=== PATIENT | female | born 1965 | race Caucasian/White ===

== ENCOUNTER 2023-10-23 18:00 | Emergency (ER) | payer BC, SELFPAY ==
[2023-10-23 18:01] VITALS: BP 158/78
--- NOTE | 2023-10-23 18:26 | ED.GENMED ---
History of Present Illness
General
Chief Complaint: Flank Pain
Source: patient
Exam Limitations: none
Time Seen by Provider: 10/23/23 18:11
History of Present Illness
History of Present Illness:
This is a 58 year old female that comes in with c/o left back and flank pain. States that she was in [place] helping her daughter put a kitchen floor down. States that she started with pain on but thought it was just back pain. States that
the pain has gotten worse and she has had the pain all day and it is not going away. Mychal that she feels like her back is on fire. States that she has had diarrhea and her stool has been black. States that she has no appetite. States that she always
has a headache but has felt a little dizzy. Denies any fever, chills, chest pain, SOB, abd pain, nausea, vomiting, urinary burning or frequency.
Past History
Past History
ED Past Medical History: Asthma, HTN and Other (Ulcerative colitis, kidney stones)
ED Past Surgical History: Cholecystectomy and Gynecological (Uterine ablation)
Patient has exhibited threatening behavior?: No
PSI?: No
Social History
Tobacco: Former smoker
Alcohol: Occasional
Personal:
Living: with family
Review of Systems
Review of Systems
All Other Systems: ROS reviewed and negative except as documented in HPI and ROS
Constitutional: Reports no symptoms; Denies fever or chills
EENT: Reports no symptoms
Respiratory: Reports no symptoms; Denies cough or trouble breathing
Cardiac: Reports no symptoms; Denies chest pain
ABD/GI: Reports diarrhea and black stools; Denies abdominal pain, nausea or vomiting
: Reports no symptoms; Denies dysuria, frequency or urgency
Musculoskeletal: Reports back pain (Left sided)
Skin: Reports no symptoms
Neurological: Reports dizzy (Slight) and headache (Always has a headache)
Psychiatric: Reports no symptoms
Phy Exam
General Physical Exam
General Presentation: mild distress
General age: appears stated age
General Skin: warm and dry
General Habitus: normal
General Mental: alert
General Hydration: appears well hydrated
ENT Exam
ENT Exam: TM's normal, pharynx normal and neck supple
Eye Exam
Eye Exam: EOMI
Cardiovascular Exam
Cardiovascular Exam: regular rate/rhythm, no edema, no murmur and normal peripheral pulses
Pulmonary Exam
Pulmonary Exam: lungs clear, no respiratory distress, no rales, chest non tender, no crackles, no rhonchi, no wheezing and no cough
Gastrointestinal Exam
Gastrointestinal Exam: normal bowel sounds, soft, no organomegaly, no pulsatile mass, non distended, cva tenderness (Slight left sided) and tender (Left sided tenderness )
Musculoskeletal Exam
Musculoskeletal Exam: full ROM and no edema
Skin Exam
Skin Exam: normal color, warm/dry, no rash and no petechia
Psychiatric Exam
Psychiatric Exam: normal mood/affect
Course
Orders/Labs/Results
Orders:
Orders
10/23/23 18:23
0.9% Sodium Chloride 1000 ml [Nss] 1,000 ml IV BOLUS
HYDROmorphone [Dilaudid] 1 mg IV NOW STA
Ondansetron Injectable [Zofran] 4 mg IV NOW STA
10/23/23 18:26
CT Abd/pel Without Iv Or Oral Urgent
Comment:
Reason For Exam: left flank and abd pain
10/23/23 18:45
Complete Blood Count/With Diff Urgent
Comprehensive Metabolic Panel Urgent
Urinalysis Reflex To Culture Urgent
Date Specimen was Collected: 10/23/23
Time Specimen was Collected: 18:43
Abnormal Lab Results
10/23/23
18:45
RBC 3.87 L 10^6/uL
(4.20-5.40)
Hct 35.7 L %
(37.0-47.0)
MCH 32.0 H pg
(27.0-31.0)
MPV 10.6 H fL
(7.4-10.4)
Chloride 109 H mmol/L
(98-107)
Creatinine 0.5 L mg/dL
(0.6-1.0)
Urine Ketones Trace A
(Negative)
10/23/23 18:45
10/23/23 18:45
Chloride slightly elevated. Urine negative for infection.
Vital Signs
Initial and Last Documented VS:
Initial Vital Signs
Temp Pulse Resp BP Pulse Ox
97.9 F 105 16 158/78 96
10/23/23 18:01 10/23/23 18:01 10/23/23 18:01 10/23/23 18:01 10/23/23 18:01
Last Documented Vital Signs
Temp Pulse Resp BP Pulse Ox
97.9 F 105 16 110/67 94
10/23/23 18:01 10/23/23 18:01 10/23/23 18:01 10/23/23 19:00 10/23/23 19:00
MDM/Problems Addressed
Differential Diagnosis Includes:
renal calculus, Ulcerative Colitis
MDM/Problems Addressed:
This is a 58 year old female that comes in with c/o left flank pain. States that she started on with back pain. States that this continued to get worse.
Will get labs, Urine and CT scan. Will give IV fluids and medicate for pain.
back into see patient. Explained that there are no renal calculus but there is a left nephrolith in the left kidney. The CT shows Degenerative changes of the spine, bilateral sacroiliac joints, hips and symphysis pubis. Grade 1 degenerative
anterolisthesis of L4 on L5. Will have patient use Tylenol arthritis as this is the max amount of Tylenol to use and Heat or ice to the back which ever makes her feel better. Follow up with the family doctor. Return with any concerns.
Chronic conditions affecting care:
Ulcerative colitis, renal caculus
Acute Exacerbation and/or Progression of Chronic Illness:
Renal calculus, Ulcerative Colitis.
*Radiology
Radiology exam reviewed: radiology read reviewed (CT- small left lower pole nephrolith. No evidence for obstructive uropathy. )
*Pulse Oximetry
Patient hypoxic: no
*EKG
Interpreted by ED Provider?: NA
Rate: EKG- N/A
*Car Pick Up Driver Interpretation
Rate: Car Pick Up Driver- N/A
*Critical Care Note
Total Time (30-74mins, 75-104mins- exclusive of procedures): Not Applicable
ED Attending Note
-
Portions of this chart may have been created with voice recognition software.� Occasional wrong word or��sound alike� substitutions may have occurred due to the inherent limitations of voice recognition software.
Discharge Plan
Departure
Patient Disposition: Home (Routine Discharge)
Date of Disposition: 10/23/23
Time of Disposition: 19:52
Patient with high blood pressure during this ER visit?: No
Condition: Good
Covid-19: Not Applicable
Discharge Problem:
Acute mid back pain
Instructions: Back Pain
Prescriptions:
No Action
esomeprazole magnesium [Nexium] 40 MG capsule,delayed release(DR/EC)
40 mg PO DAILY
balsalazide [Colazal] 750 MG capsule
2,250 mg PO BID
cyclobenzaprine [Flexeril] 10 mg Tablet
10 mg PO TID PRN (Reason: muscle pains)
sucralfate [Carafate] 1 gram Tablet
1 g PO ACHS
Theragen Tablet
1 tab PO DAILY
ascorbic acid (vitamin C) [Vitamin C] 500 mg Tablet
500 mg PO DAILY
docusate sodium [Colace] 100 mg Capsule
100 mg PO HS
zinc 50 mg Tablet
50 mg PO DAILY
Excedrin Migraine 250-250-65 mg Tablet
1 tab PO BIDPRN PRN (Reason: mild pains)
olmesartan [Benicar] 5 mg Tablet
5 mg PO BID
cholecalciferol (vitamin D3) [Vitamin D3] 25 mcg (1,000 unit) Tablet
25 mcg PO DAILY
Motegrity 2 mg tablet
2 mg PO DAILY
ondansetron 4 mg tablet,disintegrating
4 mg PO Q8H PRN (Reason: nausea and vomiting) Qty: 10 0RF
Referrals:
UNKNOWN - PT DOES,NOT KNOW [Family Provider] -
Stand Alone Forms: Return to Work
Activity Restrictions/Additional Instructions:
As discussed, your blood work is normal and your urine is negative for any infection. Your CT shows that there is a stone in the left kidney but this will not cause pain unless it starts to move. There is degenerative changes in the back, Hips and
pelvis. Please use Tylenol arthritis to pain, heat or ice which ever makes you feel better. Follow up with the family doctor for further evaluation. IF YOU HAVE ANY OTHER CONCERNS PLEASE RETURN TO THE EMERGENCY ROOM.
Interventions
Interventions:
ED-Female Genitourinary Assessment Last Done: 10/23/23 19:32
Discharge Date and Time
Print Language: HUNGARIAN
[2023-10-23] MEDS: DILAUDID 1 MG IV (18:38)
[2023-10-23] MEDS: ZOFRAN 4 MG IV (18:39)
[2023-10-23] MEDS: NSS 1000 IV (18:44)
[2023-10-23 18:48] VITALS: BP 125/60
[2023-10-23 18:56] LABS: % Basophils 0.3 % (0-2); % Eosinophils 0.3 % (0-6); % Immature Granulocytes 0.2 % (0-0.5); % Lymphocytes 38.7 % (20.5-51.1); % Monocytes 6.4 % (1.7-9.3); % Neutrophils 54.1 % (42.2-75.2); Absolute Lymphocytes 2.4 10^3/uL (1.2-3.4); Absolute Monocytes 0.4 10^3/uL (0.1-0.6); Absolute Neutrophils 3.4 10^3/uL (1.4-6.5); Hematocrit 35.7 % (37.0-47.0); Hemoglobin 12.4 g/dL (12.0-16.0); Mean Corp Hgb Conc. 34.7 g/dL (33.0-37.0); Mean Corpuscular Volume 92.2 fL (81.0-99.0); Mean Platelet Volume 10.6 fL (7.4-10.4); Nucleated Red Blood Cells % 0 %; Platelet Count 167 10^3/uL (130-400); Red Blood Cell Count 3.87 10^6/uL (4.20-5.40); Red Cell Dist. Width 12.1 % (11.5-14.5); Urine Albumin Negative (Neg - Trace); Urine Bilirubin Negative (Negative); Urine Character Clear (Clear); Urine Color Yellow; Urine Glucose Negative (Negative); Urine Ketone Trace (Negative); Urine Leukocyte Negative (Negative); Urine Nitrite Negative (Negative); Urine Occult Blood Negative (Negative); Urine Specific Gravity 1.015 (<1.030); Urine Urobilinogen Negative (Neg - 1+); White Blood Cell Count 6.3 10^3/uL (4.8-10.8)
[2023-10-23 19:00] VITALS: BP 110/67
[2023-10-23 19:15] LABS: ALT (SGPT) 16 U/L (0-35); AST (SGOT) 24 U/L (14-36); Albumin 4.3 g/dl (3.5-5.0); Alkaline Phosphatase 78 U/L (38-126); Blood Urea Nitrogen 17 mg/dl (7-17); Calcium 9.7 mg/dl (8.4-10.2); Carbon Dioxide 24 mmol/L (22-30); Chloride 109 mmol/L (98-107); Glucose 93 mg/dl (70-99); Potassium 3.6 mmol/L (3.5-5.1); Sodium 143 mmol/L (135-145); Total Bilirubin 0.5 mg/dl (0.2-1.3); Total Protein 6.8 g/dl (6.3-8.2); eGFR > 60.00
[2023-10-23 20:08] VITALS: BP 128/70
== END 2023-10-23 20:26 | disposition home or self-care (01) ==
LOC: EMR 18:00
PROVIDERS: Clinical Nurse Specialist Family Health; EMERGENCY PHYSICIAN Emergency Medicine
DX: M54.6 Pain in thoracic spine (principal); Z87.891 Personal history of nicotine dependence
CPT/HCPCS: 99284; 96374; 96375; 96361; 74176; 80053; 81003; 85025

== ENCOUNTER 2023-10-25 03:59 | Emergency (ER) | payer BC, SELFPAY ==
[2023-10-25] VITALS (9 sets, daily range): BP systolic 118–145; BP diastolic 63–100; BMI 25.5
[2023-10-25] MEDS: ZOFRAN 4 MG IV ×2 (05:36→09:32)
[2023-10-25] MEDS: MORPHINE SULFATE 4 MG IV (05:37)
[2023-10-25 05:59] LABS: % Basophils 0.2 % (0-2); % Eosinophils 0.3 % (0-6); % Immature Granulocytes 0.3 % (0-0.5); % Monocytes 5.4 % (1.7-9.3); % Neutrophils 69.8 % (42.2-75.2); Absolute Lymphocytes 1.4 10^3/uL (1.2-3.4); Absolute Monocytes 0.3 10^3/uL (0.1-0.6); Hematocrit 39.6 % (37.0-47.0); Hemoglobin 13.4 g/dL (12.0-16.0); Mean Corp Hgb Conc. 33.8 g/dL (33.0-37.0); Mean Corpuscular Hgb 33.2 pg (27.0-31.0); Mean Platelet Volume 11.5 fL (7.4-10.4); Nucleated Red Blood Cells % 0 %; Platelet Count 170 10^3/uL (130-400); Red Blood Cell Count 4.04 10^6/uL (4.20-5.40); White Blood Cell Count 5.7 10^3/uL (4.8-10.8)
[2023-10-25 06:16] LABS: ALT (SGPT) 17 U/L (0-35); AST (SGOT) 25 U/L (14-36); Albumin 4.4 g/dl (3.5-5.0); Alkaline Phosphatase 76 U/L (38-126); Blood Urea Nitrogen 16 mg/dl (7-17); Calcium 9.6 mg/dl (8.4-10.2); Carbon Dioxide 28 mmol/L (22-30); Chloride 108 mmol/L (98-107); Glucose 93 mg/dl (70-99); Potassium 3.9 mmol/L (3.5-5.1); Sodium 143 mmol/L (135-145); Total Bilirubin 0.8 mg/dl (0.2-1.3); Total Protein 6.8 g/dl (6.3-8.2); eGFR > 60.00
--- NOTE | 2023-10-25 07:39 | ED.GENMED ---
History of Present Illness
<Reese Metzger MD, Resident - Last Filed: 10/25/23 12:49>
General
Chief Complaint: Back Pain
Time Seen by Provider: 10/25/23 07:28
History of Present Illness
History of Present Illness:
58-year-old female presented to the ED with left flank pain radiating to her back. She was in the ED 2 days ago and was diagnosed with nephrolithiasis with nonobstructive uropathy. Patient states that after going back home and after wearing off of
the pain medications her pain reoccurred. She experiences sharp shooting pain in her left flank which radiates to her lower back. It also radiates to upper back on left side. She has a history of ulcerative colitis. Patient also states that she
has been constipated for over 5 days now. She does take MiraLAX daily however experiences constipation with history of UC. Last bowel movement was 5 days ago, the stool color was black.
Past History
<Reese Metzger MD, Resident - Last Filed: 10/25/23 12:49>
Past History
ED Past Medical History: Asthma, HTN and Other (Ulcerative colitis, kidney stones)
ED Past Surgical History: Cholecystectomy and Gynecological (Uterine ablation)
Patient has exhibited threatening behavior?: No
PSI?: No
Social History
Tobacco: Former smoker
Alcohol: Occasional
Personal:
Living: with family
Review of Systems
<Reese Metzger MD, Resident - Last Filed: 10/25/23 12:49>
Review of Systems
: Reports flank pain (Left radiating to her back on the left side)
Phy Exam
<Reese Metzger MD, Resident - Last Filed: 10/25/23 12:49>
General Physical Exam
General Presentation: mild distress
Cardiovascular Exam
Cardiovascular Exam: regular rate/rhythm
Pulmonary Exam
Pulmonary Exam: lungs clear
Gastrointestinal Exam
Gastrointestinal Exam: normal bowel sounds, soft and tender (Flank tenderness )
Course
<Reese Metzger MD, Resident - Last Filed: 10/25/23 12:49>
Orders/Labs/Results
Orders:
Orders
10/25/23 05:30
Morphine Sulfate 4 mg .ROUTE .STK-MED ONE
Ondansetron Injectable [Zofran] 4 mg .ROUTE .STK-MED ONE
10/25/23 05:32
Ondansetron Injectable [Zofran] 4 mg IV NOW STA
10/25/23 05:37
CMP [Comprehensive Metabolic Panel] Urgent
Complete Blood Count/With Diff Urgent
Morphine Sulfate 4 mg IV NOW STA
10/25/23 07:44
Urinalysis Reflex To Culture Urgent
Date Specimen was Collected: 10/25/23
Time Specimen was Collected: 07:43
10/25/23 07:47
Ketorolac [Toradol] 30 mg IV NOW STA
10/25/23 07:50
0.9% Sodium Chloride 250 ml [Nss] 250 ml IV BOLUS
10/25/23 09:25
HYDROmorphone [Dilaudid] 1 mg IV NOW STA
Ondansetron Injectable [Zofran] 4 mg IV NOW STA
10/25/23 09:26
US Renal With Bladder Urgent
Comment: bladder not full ok, looking at ureteral jets
Reason For Exam: left flakn pain
Abnormal Lab Results
10/25/23
05:37
RBC 4.04 L 10^6/uL
(4.20-5.40)
MCH 33.2 H pg
(27.0-31.0)
MPV 11.5 H fL
(7.4-10.4)
Chloride 108 H mmol/L
(98-107)
10/25/23 05:37
10/25/23 05:37
Vital Signs
Initial and Last Documented VS:
Initial Vital Signs
Temp Pulse Resp BP Pulse Ox
98.2 F 110 24 142/100 98
10/25/23 04:00 10/25/23 04:00 10/25/23 04:00 10/25/23 04:00 10/25/23 04:00
Last Documented Vital Signs
Temp Pulse Resp BP Pulse Ox
98.2 F 110 24 130/64 97
10/25/23 04:00 10/25/23 04:00 10/25/23 04:00 10/25/23 12:00 10/25/23 12:00
<Bonifacio Shields, DO - Last Filed: 10/25/23 07:59>
Orders/Labs/Results
Orders:
Orders
10/25/23 05:30
Morphine Sulfate 4 mg .ROUTE .STK-MED ONE
Ondansetron Injectable [Zofran] 4 mg .ROUTE .STK-MED ONE
10/25/23 05:32
Ondansetron Injectable [Zofran] 4 mg IV NOW STA
10/25/23 05:37
CMP [Comprehensive Metabolic Panel] Urgent
Complete Blood Count/With Diff Urgent
Morphine Sulfate 4 mg IV NOW STA
10/25/23 07:44
Urinalysis Reflex To Culture Urgent
Date Specimen was Collected: 10/25/23
Time Specimen was Collected: 07:43
10/25/23 07:47
Ketorolac [Toradol] 30 mg IV NOW STA
10/25/23 07:50
0.9% Sodium Chloride 250 ml [Nss] 250 ml IV BOLUS
10/25/23 09:25
HYDROmorphone [Dilaudid] 1 mg IV NOW STA
Ondansetron Injectable [Zofran] 4 mg IV NOW STA
10/25/23 09:26
US Renal With Bladder Urgent
Comment: bladder not full ok, looking at ureteral jets
Reason For Exam: left flakn pain
Abnormal Lab Results
10/25/23
05:37
RBC 4.04 L 10^6/uL
(4.20-5.40)
MCH 33.2 H pg
(27.0-31.0)
MPV 11.5 H fL
(7.4-10.4)
Chloride 108 H mmol/L
(98-107)
10/25/23 05:37
10/25/23 05:37
Vital Signs
Initial and Last Documented VS:
Initial Vital Signs
Temp Pulse Resp BP Pulse Ox
98.2 F 110 24 142/100 98
10/25/23 04:00 10/25/23 04:00 10/25/23 04:00 10/25/23 04:00 10/25/23 04:00
Last Documented Vital Signs
Temp Pulse Resp BP Pulse Ox
98.2 F 110 24 130/64 97
10/25/23 04:00 10/25/23 04:00 10/25/23 04:00 10/25/23 12:00 10/25/23 12:00
<Reese Metzger MD, Resident - Last Filed: 10/25/23 12:49>
*Critical Care Note
Total Time (30-74mins, 75-104mins- exclusive of procedures): Not Applicable
<Reese Metzger MD, Resident - Last Filed: 10/25/23 12:49>
Update Note
Update Note:
58-year-old female presented with left flank pain radiating to her back.
Patient was seen in the ED 2 days ago and was diagnosed with nephrolithiasis-. The recurrence of pain that she has been having could be due to passing of stone from kidneys to ureters. Patient is hemodynamically stable. IV Toradol 30 mg given
for pain. CT of the abdomen/pelvis was 10/22 which showed nephrolithiasis with nonobstructive uropathy. Patient continues to have pain. IV Dilauded with IV Zofran as patient feels nauseous with opioids. US of kidneys and bladder.
IMPRESSION:
No evidence for pelvicalyceal dilation of either kidney.
Small nephrolith in the lower pole the left kidney, unchanged from recent CT examination. Simple cyst within the lower pole the left kidney, also stable.
Patient's ultrasound remains unchanged from previous CT of the abdomen on 10/22. Patient is hemodynamically stable and is okay to be discharged. Will give a trial of Flomax, Toradol, Percocet for pain management. Advised the patient to to hydrate
which will help with passage of stone.
ED Attending Note
<Reese Metzger MD, Resident - Last Filed: 10/25/23 12:49>
-
Portions of this chart may have been created with voice recognition software.� Occasional wrong word or��sound alike� substitutions may have occurred due to the inherent limitations of voice recognition software.
<Bonifacio Shields DO - Last Filed: 10/25/23 07:59>
ED Attending Note
Patient seen and examined by attending physician: Yes
I performed the substantive portion of visit, reviewed & personally made and approve the management plan that is documented in note by myself or KARL.: Yes
I performed a history and physical exam of patient and discussed management with resident, I reviewed resident's note and agree with documented findings and plan of care.: Yes
ED Attending Note:
Seen with resident examined independently return visit for left flank pain history of renal stones, ulcerative colitis
No fevers, CT from a few days ago noted, allergies noted reviewed extensively with patient she does not typically use NSAIDs states 30 years ago her legs were numb after that mother previously had used a lot of Naprosyn does not prefer narcotics as
well will try a dose of Toradol here, unclear if she has got a true allergy or not, she is hesitant to use any narcotics, hold on further imaging suspect this could be a stone which is migrated, versus muscular,
Discharge Plan
Departure
Patient Disposition: Home (Routine Discharge)
Date of Disposition: 10/25/23
Time of Disposition: 12:03
Patient with high blood pressure during this ER visit?: No
Condition: Good
Discharge Problem:
Left nephrolithiasis
Instructions: Kidney Stone, Adult ED
Prescriptions:
New
tamsulosin [Flomax] 0.4 mg capsule
0.4 mg PO DAILY 5 Days Qty: 5 0RF
Rx Instructions:
To be taken at night due to orthostatic hypotension
naproxen 500 mg tablet
500 mg PO BID PRN (Reason: Pain) 7 Days Qty: 14 0RF
hydrocodone-acetaminophen 5-300 mg tablet
1 tab PO Q8H PRN (Reason: Pain) Qty: 10 0RF
No Action
esomeprazole magnesium [Nexium] 40 MG capsule,delayed release(DR/EC)
40 mg PO DAILY
balsalazide [Colazal] 750 MG capsule
2,250 mg PO BID
cyclobenzaprine [Flexeril] 10 mg Tablet
10 mg PO TID PRN (Reason: muscle pains)
sucralfate [Carafate] 1 gram Tablet
1 g PO ACHS
Theragen Tablet
1 tab PO DAILY
ascorbic acid (vitamin C) [Vitamin C] 500 mg Tablet
500 mg PO DAILY
docusate sodium [Colace] 100 mg Capsule
100 mg PO HS
zinc 50 mg Tablet
50 mg PO DAILY
Excedrin Migraine 250-250-65 mg Tablet
1 tab PO BIDPRN PRN (Reason: mild pains)
olmesartan [Benicar] 5 mg Tablet
5 mg PO BID
cholecalciferol (vitamin D3) [Vitamin D3] 25 mcg (1,000 unit) Tablet
25 mcg PO DAILY
Motegrity 2 mg tablet
2 mg PO DAILY
ondansetron 4 mg tablet,disintegrating
4 mg PO Q8H PRN (Reason: nausea and vomiting) Qty: 10 0RF
Referrals:
UNKNOWN - PT DOES,NOT KNOW [Family Provider] -
Interventions
Interventions:
*Risk Screen - Suicide Last Done: 10/25/23 04:00
*General Assessment Last Done: 10/25/23 06:43
*Neglect/Abuse Screening Last Done: 10/25/23 04:00
ED- Fall Risk Assessment Last Done: 10/25/23 06:56
*ED COVID-19 Vaccine History Last Done: 10/25/23 06:43
ED-Musculoskeletal Assessment Last Done: 10/25/23 05:16
Discharge Date and Time
Print Language: TURKISH
[2023-10-25] MEDS: TORADOL 30 MG IV (07:54)
[2023-10-25] MEDS: NSS 250 IV (07:55)
[2023-10-25 07:56] LABS: Urine Albumin Negative (Neg - Trace); Urine Bilirubin Negative (Negative); Urine Character Clear (Clear); Urine Color Yellow; Urine Glucose Negative (Negative); Urine Ketone Negative (Negative); Urine Leukocyte Negative (Negative); Urine Nitrite Negative (Negative); Urine Occult Blood Negative (Negative); Urine Specific Gravity 1.025 (<1.030); Urine Urobilinogen Negative (Neg - 1+)
[2023-10-25] MEDS: DILAUDID 1 MG IV (09:28)
== END 2023-10-25 13:19 | disposition home or self-care (01) ==
LOC: EMR 03:59
PROVIDERS: Student in an Organized Health Care Education/Training Program; EMERGENCY PHYSICIAN Emergency Medicine
DX: N20.0 Calculus of kidney (principal); K59.00 Constipation, unspecified; R10.9 Unspecified abdominal pain; M54.9 Dorsalgia, unspecified; I10 Essential (primary) hypertension; K51.90 Ulcerative colitis, unspecified, without complications; J45.909 Unspecified asthma, uncomplicated; Z90.49 Acquired absence of other specified parts of digestive tract; Z87.442 Personal history of urinary calculi; Z87.891 Personal history of nicotine dependence; Z88.5 Allergy status to narcotic agent
CPT/HCPCS: 99284; 96374; 96375 ×3; 96361; 96376; 76770; 80053; 81003; 85025

== ENCOUNTER 2023-10-30 08:15 | Emergency (ER) | payer BC, OTHER, SELFPAY ==
[2023-10-30 08:19] VITALS: BP 145/90
[2023-10-30 09:11] VITALS: BMI 23.8
[2023-10-30 09:13] VITALS: BP 153/78
[2023-10-30 09:15] VITALS: BP 153/78
[2023-10-30 09:32] LABS: Urine Albumin Negative (Neg - Trace); Urine Bilirubin Negative (Negative); Urine Character Clear (Clear); Urine Color Straw; Urine Glucose Negative (Negative); Urine Ketone Negative (Negative); Urine Leukocyte Negative (Negative); Urine Nitrite Negative (Negative); Urine Occult Blood Negative (Negative); Urine Specific Gravity 1.015 (<1.030); Urine Urobilinogen Negative (Neg - 1+)
[2023-10-30 09:35] LABS: % Basophils 0.2 % (0-2); % Eosinophils 0.4 % (0-6); % Immature Granulocytes 0.2 % (0-0.5); % Lymphocytes 31.2 % (20.5-51.1); % Monocytes 6.4 % (1.7-9.3); % Neutrophils 61.6 % (42.2-75.2); Absolute Lymphocytes 1.6 10^3/uL (1.2-3.4); Absolute Monocytes 0.3 10^3/uL (0.1-0.6); Absolute Neutrophils 3.1 10^3/uL (1.4-6.5); Hematocrit 36.8 % (37.0-47.0); Hemoglobin 12.7 g/dL (12.0-16.0); Mean Corp Hgb Conc. 34.5 g/dL (33.0-37.0); Mean Corpuscular Hgb 32.2 pg (27.0-31.0); Mean Corpuscular Volume 93.2 fL (81.0-99.0); Mean Platelet Volume 10.6 fL (7.4-10.4); Nucleated Red Blood Cells % 0 %; Platelet Count 160 10^3/uL (130-400); Red Blood Cell Count 3.95 10^6/uL (4.20-5.40)
--- NOTE | 2023-10-30 09:36 | ED.GENMED ---
History of Present Illness
<Clay Cohen PA-C - Last Filed: 10/30/23 13:02>
General
Chief Complaint: Flank Pain
Source: patient and records
Time Seen by Provider: 10/30/23 09:01
History of Present Illness
History of Present Illness:
58-year-old female with past medical history of hypertension and ulcerative colitis, seen here twice in the last week and diagnosed with a nonobstructive left renal pole kidney stone measuring 3 mm, presenting back to the emergency department still
reporting continued left-sided mid back pain described to be constant, goes towards the scapular region but also into the lower back, unrelieved with naproxen as well as Percocet that she has been taking at home. Patient made an appointment with
urology but is unable to be seen until Tuesday. She endorses associated nausea and constipation. She denies any fevers, chills, rigors, urinary frequency/urgency/dysuria/hematuria, chest pain, shortness of breath, pleurisy, hemoptysis or any other
concerns. Denies any history of similar. States this feels very different than the ulcerative colitis flare. No other concerns presently
Past History
<Clay Cohen PA-C - Last Filed: 10/30/23 13:02>
Past History
ED Past Medical History: Asthma, HTN and Other (Ulcerative colitis, kidney stones)
ED Past Surgical History: Cholecystectomy and Gynecological (Uterine ablation)
Patient has exhibited threatening behavior?: No
PSI?: No
Social History
Tobacco: Former smoker
Alcohol: Occasional
Drug: None
Personal:
Living: with family
Review of Systems
<JOSE Gabriel Last Filed: 10/30/23 13:02>
Review of Systems
All Other Systems: ROS reviewed and negative except as documented in HPI and ROS
Phy Exam
<Clay Cohen PA-C - Last Filed: 10/30/23 13:02>
Physical Exam
Physical Exam:
GENERAL: Alert , in no apparent distress but does appear uncomfortable
Head: Normocephalic atraumatic
EYE: Clear conjunctiva
NECK: Supple
ENT: o/p clr, mmm.
CARDIAC: Regular rate and rhythm, no murmur.
LUNGS: Clear breath sounds bilaterally, no acute respiratory distress, no wheezes/rales/rhonchi
ABDOMEN: Soft, nondistended, diffuse generalized tenderness, no r/g, no cvat
Back: Patient has some reproducible tenderness to the left mid back just inferior to the scapula and extends down into the paralumbar region
NEUROLOGICAL: Alert and oriented
SKIN: Warm and dry, skin intact.
MUSCULOSKELETAL: No edema, well perfused.
PSYCH: Normal and appropriate interaction.
Scores
<Clay Cohen PA-C - Last Filed: 10/30/23 13:02>
Heart Failure Risk
Heart Failure Risk Score: Not Applicable
Heart Score for Chest Pain Patients
STEMI patient?: Not applicable
Withdrawal Assessment of Alcohol
Withdrawal Assessment Completed?: Not applicable
Course
<Clay Cohen PA-C - Last Filed: 10/30/23 13:02>
Orders/Labs/Results
Orders:
Orders
10/30/23 09:12
Ketorolac [Toradol] 30 mg IV NOW STA
Ondansetron Injectable [Zofran] 4 mg IV NOW STA
10/30/23 09:20
Complete Blood Count/With Diff Urgent
Comprehensive Metabolic Panel Urgent
D-Dimer Urgent
Lipase Urgent
Troponin I Urgent
Urinalysis Reflex To Culture Urgent
Date Specimen was Collected: 10/30/23
Time Specimen was Collected: 09:16
10/30/23 09:34
Dexamethasone Sod Phosphate [Decadron] 10 mg IV NOW STA
Diazepam [Valium] 5 mg PO NOW STA
Lidocaine [Lidocaine 4% Patch] 1 patch TOPICAL NOW STA
Apply Lidocaine patch(s) to:: right mid back
10/30/23 09:51
Electrocardiogram (*1) Urgent
Reason for Study: Other
Other Reason for Exam: back pain
EKG- Treatment ONCE
Abnormal Lab Results
10/30/23
09:20
RBC 3.95 L 10^6/uL
(4.20-5.40)
Hct 36.8 L %
(37.0-47.0)
MCH 32.2 H pg
(27.0-31.0)
MPV 10.6 H fL
(7.4-10.4)
Carbon Dioxide 32 H mmol/L
(22-30)
10/30/23 09:20
10/30/23 09:20
Vital Signs
Initial and Last Documented VS:
Initial Vital Signs
Temp Pulse BP Pulse Ox
98.2 F 87 145/90 99
10/30/23 08:19 10/30/23 08:19 10/30/23 08:19 10/30/23 08:19
Last Documented Vital Signs
Temp Pulse Resp BP Pulse Ox
97.9 F 91 20 138/70 99
10/30/23 12:00 10/30/23 12:15 10/30/23 12:15 10/30/23 11:00 10/30/23 12:15
<Cj Harrison, DO - Last Filed: 10/30/23 12:13>
Orders/Labs/Results
Orders:
Orders
10/30/23 09:12
Ketorolac [Toradol] 30 mg IV NOW STA
Ondansetron Injectable [Zofran] 4 mg IV NOW STA
10/30/23 09:20
Complete Blood Count/With Diff Urgent
Comprehensive Metabolic Panel Urgent
D-Dimer Urgent
Lipase Urgent
Troponin I Urgent
Urinalysis Reflex To Culture Urgent
Date Specimen was Collected: 10/30/23
Time Specimen was Collected: 09:16
10/30/23 09:34
Dexamethasone Sod Phosphate [Decadron] 10 mg IV NOW STA
Diazepam [Valium] 5 mg PO NOW STA
Lidocaine [Lidocaine 4% Patch] 1 patch TOPICAL NOW STA
Apply Lidocaine patch(s) to:: right mid back
10/30/23 09:51
Electrocardiogram (*1) Urgent
Reason for Study: Other
Other Reason for Exam: back pain
EKG- Treatment ONCE
Abnormal Lab Results
10/30/23
09:20
RBC 3.95 L 10^6/uL
(4.20-5.40)
Hct 36.8 L %
(37.0-47.0)
MCH 32.2 H pg
(27.0-31.0)
MPV 10.6 H fL
(7.4-10.4)
Carbon Dioxide 32 H mmol/L
(22-30)
10/30/23 09:20
10/30/23 09:20
Vital Signs
Initial and Last Documented VS:
Initial Vital Signs
Temp Pulse BP Pulse Ox
98.2 F 87 145/90 99
10/30/23 08:19 10/30/23 08:19 10/30/23 08:19 10/30/23 08:19
Last Documented Vital Signs
Temp Pulse Resp BP Pulse Ox
97.9 F 91 20 138/70 99
10/30/23 12:00 10/30/23 12:15 10/30/23 12:15 10/30/23 11:00 10/30/23 12:15
<Clay Cohen PA-C - Last Filed: 10/30/23 13:02>
MDM/Problems Addressed
Differential Diagnosis Includes:
Has a known 3 mm none of left kidney stone however I do not suspect this to be the cause of the pain as this is within the lower pole of the kidney and nonobstructive. I also do not have concern for acute pyelonephritis as patient has had 2
negative urines with negative cultures.
Musculoskeletal etiology, PE, possible bowel pathology
MDM/Problems Addressed:
58-year-old male presenting back to this emergency department for the third time in 1 week for left-sided back/flank pain. Patient was told about a 3 mm nonobstructive kidney stone on the lower pole of the left kidney and made an appointment with
urology but is unable to be seen until this coming Tuesday. Based off of history combined with her exam today as well as her imaging studies I am less suspicious that the pain is being caused by the nonobstructive kidney stone. It was noted on
patient's first visit that she had been laying down yomi prior to the pain starting so I am most suspicious for a musculoskeletal etiology. In the meantime we will also add on different labs including a D-dimer, lipase and will obtain imaging
based off of D-dimer result. It was also noted on patient's CT report that she has chronic mild degenerative changes of the spine, bilateral sacroiliac joints, hips and symphysis pubis as well as grade 1 degenerative anterolisthesis of L4 on L5
furthering my suspicion that this is likely muscular. Patient's pain to be treated with Toradol, Valium for muscle relaxant, Decadron and topical Lidoderm. Explained to patient that I would like to avoid opiates as she is already known
constipation over the few days which I think is related to the Dilaudid and that she has received over the last week.
<Clay Cohen PA-C - Last Filed: 10/30/23 13:02>
*Pulse Oximetry
Patient hypoxic: no
*EKG
Interpreted by ED Provider?: Yes
Comparison EKG: no changes
Heart Rate: 70
Rate: normal
Rhythm: sinus
Gilmer: normal axis
Ischemia: no ischemia
*Critical Care Note
Total Time (30-74mins, 75-104mins- exclusive of procedures): Not Applicable
Data Reviewed
Review of Other/Old Records Reveals: Labs, Records and Radiology Studies
Source: patient and records
<Clay Cohen PA-C - Last Filed: 10/30/23 13:02>
Patient Management
Escalation/DeEscalation of care consider admission/obs:
Patient is still noting some pain albeit improved following medications here. Patient's lab findings are all reassuring. Negative troponin as well as D-dimer. Nonischemic EKG. I discussed with patient that I am still most suspicious that her
symptoms are all related to a muscular etiology. Will treat at home with muscle relaxant, steroid taper and provided with information for pain management. Patient aware of return precautions to the emergency department and is otherwise stable for
discharge home.
ED Attending Note
<Clay Cohen PA-C - Last Filed: 10/30/23 13:02>
-
Portions of this chart may have been created with voice recognition software.� Occasional wrong word or��sound alike� substitutions may have occurred due to the inherent limitations of voice recognition software.
<Cj Harrison DO - Last Filed: 10/30/23 12:13>
ED Attending Note
Patient seen and examined by attending physician: Yes
I performed the substantive portion of visit, reviewed & personally made and approve the management plan that is documented in note by myself or KARL.: Yes
Discharge Plan
Departure
Patient Disposition: Home (Routine Discharge)
Date of Disposition: 10/30/23
Time of Disposition: 12:13
Patient with high blood pressure during this ER visit?: Yes
Discharge Problem:
Dorsalgia
Instructions: Back Pain
Prescriptions:
New
cyclobenzaprine 5 mg tablet
5 mg PO BID PRN (Reason: muscle spasm) Qty: 6 0RF
oxycodone-acetaminophen [Percocet] 5-325 mg tablet
1 tab PO Q6HPRN PRN (Reason: pain) Qty: 6 0RF
methylprednisolone [Medrol (Kevin)] 4 mg tablets,dose pack
4 mg PO DIRECTED Qty: 21 0RF
No Action
esomeprazole magnesium [Nexium] 40 MG capsule,delayed release(DR/EC)
40 mg PO DAILY
balsalazide [Colazal] 750 MG capsule
2,250 mg PO BID
cyclobenzaprine [Flexeril] 10 mg Tablet
10 mg PO TID PRN (Reason: muscle pains)
sucralfate [Carafate] 1 gram Tablet
1 g PO ACHS
Theragen Tablet
1 tab PO DAILY
ascorbic acid (vitamin C) [Vitamin C] 500 mg Tablet
500 mg PO DAILY
docusate sodium [Colace] 100 mg Capsule
100 mg PO HS
zinc 50 mg Tablet
50 mg PO DAILY
Excedrin Migraine 250-250-65 mg Tablet
1 tab PO BIDPRN PRN (Reason: mild pains)
olmesartan [Benicar] 5 mg Tablet
5 mg PO BID
cholecalciferol (vitamin D3) [Vitamin D3] 25 mcg (1,000 unit) Tablet
25 mcg PO DAILY
Motegrity 2 mg tablet
2 mg PO DAILY
ondansetron 4 mg tablet,disintegrating
4 mg PO Q8H PRN (Reason: nausea and vomiting) Qty: 10 0RF
tamsulosin [Flomax] 0.4 mg capsule
0.4 mg PO DAILY 5 Days Qty: 5 0RF
Rx Instructions:
To be taken at night due to orthostatic hypotension
naproxen 500 mg tablet
500 mg PO BID PRN (Reason: Pain) 7 Days Qty: 14 0RF
oxycodone-acetaminophen [Percocet] 5-325 mg tablet
1 tab PO Q8H PRN (Reason: Pain) Qty: 10 0RF
Referrals:
Prasad Kimbrough MD [Active] - (Pain Management)
Shirley Bradley DO [Family Provider] -
Interventions
Interventions:
*Risk Screen - Suicide Last Done: 10/30/23 10:15
*General Assessment Last Done: 10/30/23 09:11
*Neglect/Abuse Screening Last Done: 10/30/23 10:15
ED- Fall Risk Assessment Last Done: 10/30/23 09:11
*ED COVID-19 Vaccine History Last Done: 10/30/23 09:14
*Nursing Disposition Last Done: 10/30/23 12:54
HA-Ejwpoh-Vzthkiyfsl Assessment Last Done: 10/30/23 09:11
ED-Female Genitourinary Assessment Last Done: 10/30/23 09:11
Discharge Date and Time
Print Language: MALAWIAN
[2023-10-30] MEDS: ZOFRAN 4 MG IV (09:41)
[2023-10-30] MEDS: TORADOL 30 MG IV (09:42)
[2023-10-30] MEDS: DECADRON 10 MG IV (09:42)
[2023-10-30] MEDS: LIDOCAINE 4% PATCH 1 PATCH TOPICAL (09:43)
[2023-10-30] MEDS: VALIUM 5 MG PO (09:43)
[2023-10-30 09:46] LABS: ALT (SGPT) 15 U/L (0-35); AST (SGOT) 21 U/L (14-36); Albumin 4.2 g/dl (3.5-5.0); Alkaline Phosphatase 74 U/L (38-126); Blood Urea Nitrogen 13 mg/dl (7-17); Calcium 9.8 mg/dl (8.4-10.2); Carbon Dioxide 32 mmol/L (22-30); Chloride 105 mmol/L (98-107); D-Dimer 0.31 ug/mlFEU (0.00-0.50); Estimated Creatinine Clearance 85 ml/min; Glucose 93 mg/dl (70-99); Lipase 67 U/L (23-300); Potassium 3.9 mmol/L (3.5-5.1); Sodium 141 mmol/L (135-145); Total Bilirubin 1.2 mg/dl (0.2-1.3); Total Protein 6.7 g/dl (6.3-8.2); eGFR > 60.00
[2023-10-30 09:58] LABS: Troponin I < 0.012 ng/ml
[2023-10-30 10:00] VITALS: BP 155/76
[2023-10-30 11:00] VITALS: BP 138/70
== END 2023-10-30 13:00 | disposition home or self-care (01) ==
LOC: EMR 08:15
PROVIDERS: Physician Assistant Medical; EMERGENCY PHYSICIAN Emergency Medicine; FAMILY PHYSICIAN Internal Medicine Infectious Disease
DX: R10.9 Unspecified abdominal pain (principal); M54.6 Pain in thoracic spine; R11.0 Nausea; K59.00 Constipation, unspecified; M54.50 Low back pain, unspecified; N20.0 Calculus of kidney; I10 Essential (primary) hypertension; K51.90 Ulcerative colitis, unspecified, without complications; J45.909 Unspecified asthma, uncomplicated; M43.16 Spondylolisthesis, lumbar region; Z90.49 Acquired absence of other specified parts of digestive tract; Z87.891 Personal history of nicotine dependence; Z88.5 Allergy status to narcotic agent
CPT/HCPCS: 99284; 96374; 96375 ×2; 80053; 81003; 83690; 84484; 85025; 85379; 93005